=== PATIENT | female | born 1995 | race Two or more races ===

== ENCOUNTER 2017-12-20 08:21 | Inpatient (IN) | payer OTHER ==
[2017-12-20 09:18] LABS: ADD MAN DIFF? NO
[2017-12-20 09:21] LABS: WHITE BLOOD COUNT 8.7 10^3/ul (4.8-10.8)
[2017-12-20 09:21] LABS: BASOPHILS % 0.2 % (0.0-2.0); EOSINOPHILS # 0.1 10^3/ul (0.0-0.5); EOSINOPHILS % 1.2 % (0.0-7.0); HEMATOCRIT 38.4 % (37.0-47.0); LYMPHOCYTES # 1.5 10^3/ul (0.8-2.9); LYMPHOCYTES % 17.1 % (15.0-51.0); MEAN CORPUSCULAR HEMOGLOBIN 30.7 pg (29.0-33.0); MEAN CORPUSCULAR HGB CONC 33.9 g/dl (32.0-37.0); MEAN CORPUSCULAR VOLUME 90.8 fl (82.0-101.0); MEAN PLATELET VOLUME 9.2 fl (7.4-10.4); MONOCYTE # 0.8 10^3/ul (0.3-0.9); MONOCYTES % 8.9 % (0.0-11.0); NEUTROPHIL # 6.3 10^3/ul (1.6-7.5); NEUTROPHILS % 71.9 % (39.0-77.0); PLATELET COUNT 165 10^3/UL (140-415); RED BLOOD COUNT 4.23 10^6/ul (4.20-5.40); RED CELL DISTRIBUTION WIDTH 13.5 % (11.5-14.5)
[2017-12-20 09:28] LABS: ADD UMIC YES; UR ASCORBIC ACID NEGATIVE (NEGATIVE); UR BACTERIA FEW /HPF (NONE SEEN); UR BILIRUBIN (Dip) NEGATIVE (NEGATIVE); UR BLOOD (Dip) 1+ mg/dL (NEGATIVE); UR CLARITY CLEAR (CLEAR); UR COLOR STRAW (YELLOW); UR GLUCOSE (Dip) NEGATIVE (NEGATIVE); UR KETONES (Dip) NEGATIVE (NEGATIVE); UR LEUKOCYTE ESTERASE (Dip) NEGATIVE Leu/ul (NEGATIVE); UR NITRITE (Dip) NEGATIVE (NEGATIVE); UR RBC 0 /HPF (0-5); UR SPECIFIC GRAVITY (Dip) 1.003 (1.003-1.030); UR TOTAL PROTEIN (Dip) NEGATIVE (NEGATIVE); UR UROBILINOGEN (Dip) NEGATIVE (NEGATIVE); UR WBC 0 /HPF (0-5)
[2017-12-20 09:42] LABS: ALANINE AMINOTRANSFERASE 22 IU/L (13-69); ALBUMIN 3.8 g/dl (3.3-4.9); ALBUMIN/GLOBULIN RATIO 1.35; ALKALINE PHOSPHATASE 128 IU/L (42-121); ANION GAP 15 (8-16); ASPARTATE AMINO TRANSFERASE 16 IU/L (15-46); BILIRUBIN,INDIRECT 0.2 mg/dl (0-1.1); BILIRUBIN,TOTAL 0.2 mg/dl (0.2-1.3); BLOOD UREA NITROGEN 8 mg/dl (7-20); CARBON DIOXIDE 24 mmol/L (21-31); CHLORIDE 109 mmol/L (97-110); CREATININE 0.55 mg/dl (0.44-1.00); GLUCOSE 75 mg/dl (70-220); POTASSIUM 4.7 mmol/L (3.5-5.1); SODIUM 143 mmol/L (135-144); TOTAL PROTEIN 6.6 g/dl (6.1-8.1); URIC ACID 3.9 mg/dl (3.1-7.9)
[2017-12-20 09:54] LABS: RUPTURE FETAL MEMBRANES POSITIVE (NEGATIVE)
[2017-12-20 09:55] LABS: INR 0.99; PROTIME 13.2 Sec (11.9-14.9)
[2017-12-20 09:56] LABS: PARTIAL THROMBOPLASTIN TIME 29.7 Sec (25.0-35.0)
[2017-12-20] MEDS ORDERED: CARBOPROST 250 MCG INJ IM (11:00)
[2017-12-20] MEDS ORDERED: MISOPROSTOL 200 MCG TAB PR (11:00)
[2017-12-20] MEDS ORDERED: OXYTOCIN 30 UNITS/LR 500 ML IV (11:00)
[2017-12-20] MEDS ORDERED: METHYLERGONOVINE 0.2 MG INJ IM (11:00)
[2017-12-20] MEDS ORDERED: LIDOCAINE 1% (MPF) 30 ML INJ INJ (11:00)
[2017-12-20] MEDS: LACTATED RINGER'S 1,000 ML IV ×2 (11:04→17:46)
[2017-12-20] MEDS: OXYTOCIN 30 UNITS/LR 500 ML IV (11:46)
[2017-12-20] MEDS ORDERED: AMPICILLIN 2 GM/NS (PMX) 100 ML (17:39)
[2017-12-20] MEDS: AMPICILLIN 2 GM/NS (PMX) 100 ML IVPB (17:46)
[2017-12-20 19:21] LABS: RAPID PLASMA REAGIN NONREACTIVE (NR)
[2017-12-20] MEDS: AMPICILLIN 1 GM/NS (PMX) 50 ML IVPB (20:51)
[2017-12-20] MEDS: BUTORPHANOL 2 MG INJ IV (22:31)
[2017-12-21] MEDS: AMPICILLIN 1 GM/NS (PMX) 50 ML IVPB ×6 (00:41→21:19)
[2017-12-21] MEDS: LACTATED RINGER'S 1,000 ML IV ×4 (04:27→20:07)
[2017-12-21] MEDS ORDERED: FENTAnyl 2MCG/ML-ROPIV 0.2% 100 ML (09:19)
[2017-12-21] MEDS ORDERED: NALOXONE (0.4 MG/ML) INJ IV (10:00)
[2017-12-21] MEDS ORDERED: DIPHENHYDRAMINE 50 MG INJ IV (10:00)
[2017-12-21] MEDS ORDERED: ONDANSETRON 4 MG INJ IV (10:00)
[2017-12-21 11:58] LABS: HEPATITIS B SURFACE ANTIGEN NEGATIVE (NEGATIVE)
[2017-12-21] MEDS: OXYTOCIN 30 UNITS/LR 500 ML IV (17:17)
[2017-12-21] MEDS: FENTAnyl 2MCG/ML-ROPIV 0.2% 100 ML BAG EPI (19:07)
[2017-12-22] MEDS: AMPICILLIN 1 GM/NS (PMX) 50 ML IVPB ×3 (00:34→09:07)
[2017-12-22] MEDS: FENTAnyl 2MCG/ML-ROPIV 0.2% 100 ML BAG EPI ×2 (03:50→08:16)
[2017-12-22] MEDS: LACTATED RINGER'S 1,000 ML IV (06:59)
[2017-12-22] MEDS ORDERED: SODIUM CHLORIDE 0.9% 1L IRRIG IRR (07:30)
[2017-12-22] MEDS: SOD CHLORIDE 0.9% 1,000 ML IV ×2 (10:06→10:08)
[2017-12-22] MEDS: OXYTOCIN 30 UNITS/LR 500 ML IV ×3 (12:58→19:49)
[2017-12-22] MEDS: IBUPROFEN 600 MG TAB PO ×3 (15:13→23:28)
[2017-12-22] MEDS: MAGNESIUM SULFATE 20 GM/500 ML 500 ML IV ×2 (15:41→18:00)
[2017-12-22] MEDS ORDERED: WITCH HAZEL/GLYCERIN PAD PR (16:30)
[2017-12-22] MEDS ORDERED: LANOLIN 7 GM TUBE TOP (16:30)
[2017-12-22] MEDS ORDERED: BENZOCAINE 20% 56 ML SPRAY TOP (16:30)
[2017-12-22] MEDS ORDERED: ONDANSETRON 4 MG INJ IV (16:30)
[2017-12-22] MEDS ORDERED: DIBUCAINE 1% 30 GM OINT PR (16:30)
[2017-12-22] MEDS ORDERED: ACETAMINOPHEN 325 MG TAB PO (16:30)
[2017-12-22] MEDS ORDERED: OXYCODONE/ASPIRIN (4.88/325) TAB PO ×2 (16:30)
[2017-12-22] MEDS ORDERED: HYDROCODONE/APAP (5/325) TAB PO ×2 (16:30)
[2017-12-22] MEDS: LABETALOL 100 MG TAB PO (16:32)
[2017-12-22] MEDS: SENNA/DOCUSATE NA (8.6MG/50MG) TAB PO (20:47)
[2017-12-22 23:02] LABS: MAGNESIUM 2.6 mg/dl (1.7-2.5)
[2017-12-23] MEDS: IBUPROFEN 600 MG TAB PO ×4 (06:11→23:32)
[2017-12-23 08:23] LABS: ADD MAN DIFF? NO
[2017-12-23 08:31] LABS: BASOPHILS % 0.4 % (0.0-2.0); EOSINOPHILS # 0.2 10^3/ul (0.0-0.5); EOSINOPHILS % 1.6 % (0.0-7.0); HEMATOCRIT 30.6 % (37.0-47.0); HEMOGLOBIN 10.5 g/dl (12.0-16.0); LYMPHOCYTES # 1.6 10^3/ul (0.8-2.9); LYMPHOCYTES % 15.9 % (15.0-51.0); MEAN CORPUSCULAR HEMOGLOBIN 30.8 pg (29.0-33.0); MEAN CORPUSCULAR HGB CONC 34.3 g/dl (32.0-37.0); MEAN CORPUSCULAR VOLUME 89.7 fl (82.0-101.0); MEAN PLATELET VOLUME 9.1 fl (7.4-10.4); MONOCYTES % 10.1 % (0.0-11.0); NEUTROPHIL # 7.1 10^3/ul (1.6-7.5); NEUTROPHILS % 71.3 % (39.0-77.0); PLATELET COUNT 141 10^3/UL (140-415); RED BLOOD COUNT 3.41 10^6/ul (4.20-5.40); RED CELL DISTRIBUTION WIDTH 13.4 % (11.5-14.5)
[2017-12-23] MEDS: SENNA/DOCUSATE NA (8.6MG/50MG) TAB PO ×2 (09:53→21:06)
[2017-12-23] MEDS: MAGNESIUM SULFATE 20 GM/500 ML 500 ML IV (14:00)
[2017-12-24] MEDS: IBUPROFEN 600 MG TAB PO ×2 (05:31→11:37)
[2017-12-24] MEDS: MEASLES,MUMPS,RUBELLA VACCINE INJ SC* (09:00)
[2017-12-24] MEDS: SENNA/DOCUSATE NA (8.6MG/50MG) TAB PO (10:05)
== END 2017-12-24 13:30 | disposition home or self-care (01) | DRG 775 ==
LOC: OBT 08:21 → PP1 12-22 17:31 → L-D 08:21 → OBT 10:08 → L-D 10:00
PROC: 10E0XZZ Delivery of Products of Conception, External Approach (ICD-10-PCS; principal; 2017-12-22)
PROC: 0HQ9XZZ Repair Perineum Skin, External Approach (ICD-10-PCS; 2017-12-22)
PROC: 3E033VJ Introduction of Other Hormone into Peripheral Vein, Percutaneous Approach (ICD-10-PCS; 2017-12-22)
DX: O69.81X0 Labor and delivery complicated by cord around neck, without compression, not applicable or unspecified (principal); O70.0 First degree perineal laceration during delivery; Z3A.38 38 weeks gestation of pregnancy; Z37.0 Single live birth
CPT/HCPCS: 62319; 76818; 80053; 81001; 83735; 84112; 84560; 85025; 85384; 85610; 85730; 86592; 86900; 86901; 87340; 88307; 88341; 88342; 99464